=== PATIENT | male | born 1955 | race Caucasian/White ===

== ENCOUNTER 2017-07-30 14:44 | Emergency (ER) | payer OTHER ==
[~2017-07-30] VITALS: Ht 175.3 cm; Wt 100.0 kg
[2017-07-30 15:03] VITALS: TEMP 37; Ht 175.3 cm; Wt 100.0 kg
[2017-07-30] MEDS ORDERED: OPTIRAY 320 IV PRN (16:00)
[2017-07-30 16:07] LABS: BASO % 0.2 %; BASO ABS # 0.03 K/uL (0-0.2); EOS % 0.4 %; EOS ABS # 0.06 K/uL (0-0.5); HEMATOCRIT 42.8 % (42-52); HEMOGLOBIN 15.8 g/dL (14.0-18.0); IG# 0.06 K/uL (0.00-0.02); LYMPH % 6.4 %; LYMPH ABS # 0.91 K/uL (1.2-3.4); MEAN CELL VOLUME 82.1 fL (80-100); MEAN CORPUSCULAR HEMOGLOBIN 30.3 pg (25-34); MEAN CORPUSCULAR HGB CONC 36.9 g/dl (32-36); MEAN PLATELET VOLUME 9.6 fL (7.4-10.4); MONO % 5.7 %; NEUT % 86.9 %; NEUT ABS # 12.29 K/uL (1.4-6.5); PLATELET COUNT 229 K/uL (130-400); RED CELL DISTRIBUTION WIDTH CV 12.7 % (11.5-14.5); RED CELL DISTRIBUTION WIDTH SD 37.8 fL (36.4-46.3); WHITE BLOOD COUNT 14.15 K/uL (4.8-10.8)
[2017-07-30 16:12] LABS: PTT PATIENT 21.1 SECONDS (21.0-31.0)
[2017-07-30] MEDS ORDERED: DIPHTHERIA/TETANUS/PERTUSSIS 0.5 ML SYR/VIAL IM. ONE (16:15)
--- NOTE | 2017-07-30 16:20 | DIAGNOSTIC IMAGING REPORT ---
R SHOULDER MIN 2 VIEWS ROUTINE HISTORY: 62 years-old Male right shoulder pain, fall acute right shoulder pain status post fall COMPARISON: None available TECHNIQUE: 3 views of the right shoulder FINDINGS: Mild AC joint degenerative changes without significant degenerative changes of the glenohumeral joint. There is no acute fracture or dislocation. No opaque foreign body. Imaged lung lawrence appear clear. IMPRESSION: No acute fracture or dislocation. The above report was generated using voice recognition software. It may contain grammatical, syntax or spelling errors. Electronically signed by: Sim Horowitz M.D. 07/30/2017 4:19 PM Dictated Date/Time: 07/30/2017 4:18 PM
[2017-07-30 16:34] LABS: ALBUMIN 4.4 gm/dl (3.4-5.0); CALCIUM 9.3 mg/dl (8.5-10.1); CREATININE 1.42 mg/dl (0.60-1.40); POTASSIUM 3.8 mmol/L (3.5-5.1)
[2017-07-30 16:37] LABS: TOTAL PROTEIN 7.4 gm/dl (6.4-8.2)
--- NOTE | 2017-07-30 16:37 | EMERGENCY ROOM VISIT NOTE ---
History First contact with patient: 15:10 Chief Complaint: SHOULDER PAIN Stated Complaint: SORE RIGHT SIDE FELL, SHOULDER, ARM, HEAD History of Present Illness The patient is a 62 year old male who presents to the Emergency Room with complaints of headache, neck pain, right shoulder pain, and right anterior chest wall pain after a fall at approximately 130 this afternoon. The patient was at work today and attempting to unload a 55 [id number] off of the truck and onto the ground. 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 He states he fell approximately 6 feet, landing on the right shoulder, and striking the right side of his head on the ground. He is currently reporting a popping sensation in the right anterior aspect of his chest wall. The patient denies any LOC, confusion, dizziness, wheezing, chest pressure, or difficulty with ambulation. The patient does report pleuritic pain in the area of discomfort on the right anterior chest, overlying the third rib at the sternal border. He describes a throbbing pain in the right side of his forehead, pain in his TMJ with opening the jaw, and sharp pain in the right anterior shoulder with abduction and forward flexion. He rates his pain 8/10 with activity and describes it as dull at rest. He denies any numbness, tingling, paresthesias, weakness, abdominal pain, hip pain, visual disturbances. The patient does not take blood thinners or aspirin. His tetanus vaccination is not up-to-date. Review of Systems A complete 10 point review of systems was reviewed with the patient with pertinent positives and negatives as per history of present illness. All else were negative. Past Medical/Surgical History High Blood pressure Social History Smoking Status: Current Every Day Smoker Smokeless Tobacco Use: No Alcohol Use: none Drug Use: none Marital Status: single Housing Status: lives with family Occupation Status: employed Current/Historical Medications Scheduled PRN Cyclobenzaprine Hcl (Flexeril), 5-10 MG PO TID PRN for Muscle Spasms Physical Exam Vital Signs Date Time Temp Pulse Resp B/P (MAP) Pulse Ox O2 Delivery O2 Flow Rate FiO2 07/30/17 18:27 79 20 170/96 96 07/30/17 16:27 90 24 185/115 95 Room Air 07/30/17 15:28 92 5/2/18 15:19 65 07/30/17 15:03 37.0 91 20 161/108 96 Room Air Physical Exam VITALS: Vitals are noted on the nurse's note and reviewed by myself. Vital signs stable. GENERAL: This is a 62-year-old white male, in no acute distress, nondiaphoretic , well-developed well-nourished. SKIN: Superficial abrasions noted on the right superior shoulder, right parietal region and frontal region of the scalp. The skin was otherwise without rashes, erythema, edema, or bruising. There is no tenting of the skin. Capillary reflex less than 2 seconds. HEAD: Normocephalic atraumatic. EARS: External auditory canals clear, tympanic membranes pearly benites without erythema or effusion bilaterally. EYES: Pupils equal round and reactive to light and accommodation. Conjunctivae without injection, sclerae without icterus. Extraocular movements intact. NOSE: Patent, turbinates without inflammation or discharge. No sinus tenderness. MOUTH: Mucous membranes moist. Tonsils are not enlarged. Pharynx without erythema or exudate. Uvula midline. Airway patent. Tongue does not deviate. NECK: Supple without nuchal rigidity. No lymphadenopathy. No thyromegaly. Cervical spine is mildly tender with tenderness of the paraspinal muscles on the right. No JVD. HEART: Regular rate and rhythm without murmurs gallops or rubs. LUNGS: Mild crackles noted in the right upper lung field. A popping noise was auscultated in the area of the third rib with deep inspiration. The lungs are otherwise clear to auscultation bilaterally without wheezes, rales or rhonchi. No dullness to percussion. No retractions or accessory muscle use. ABDOMEN: Positive bowel sounds x 4. Normal tympanic percussion. Soft, nontender, without masses or organomegaly. Wilson sign negative. No guarding or rebound tenderness. MUSCULOSKELETAL: There is no obvious deformity in the contour of the right shoulder and there are no obvious rosy deformities noted. There is no sulcus sign. There is tenderness over the shoulder joint and distal clavicle. The patient's range of motion is significantly limited with abduction and flexion at the shoulder joint. Supraspinatus strength 3/5. There is distal clavicle tenderness. No tenderness of the humerus, elbow, wrist, or hand. Truck Despatcher strength 5 /5. Radial pulse 2+. No muscle atrophy, erythema, or edema noted. Full range of motion without joint tenderness in all extremities. No tenderness to palpation. Normal gait. Strength 5/5 throughout. NEURO: Patient was alert and oriented to person place and time. Normal sensation to light and sharp touch. Deep tendon reflexes 2+ throughout. No focal neurological deficits. Medical Decision & Procedures ER Provider Diagnostic Interpretation: R SHOULDER MIN 2 VIEWS ROUTINE HISTORY: 62 years-old Male right shoulder pain, fall acute right shoulder pain status post fall COMPARISON: None available TECHNIQUE: 3 views of the right shoulder FINDINGS: Mild AC joint degenerative changes without significant degenerative changes of the glenohumeral joint. There is no acute fracture or dislocation. No opaque foreign body. Imaged lung lawrence appear clear. IMPRESSION: No acute fracture or dislocation. The above report was generated using voice recognition software. It may contain grammatical, syntax or spelling errors. Electronically signed by: Sim Horowitz M.D. 07/30/2017 4:19 PM Dictated Date/Time: 07/30/2017 4:18 PM [~ rep ct add3]] CT SCAN OF THE BRAIN WITHOUT IV CONTRAST CLINICAL HISTORY: Trauma. Fall from height. COMPARISON STUDY: No priors. TECHNIQUE: Unenhanced axial CT scan of the brain is performed from the vertex to the skull base. A dose lowering technique was utilized adhering to the principles of ALARA. FINDINGS: Brain parenchyma: The brain parenchyma is normal in appearance. There is no hemorrhage, mass effect, or evidence of acute territorial ischemia by CT criteria. Benites-white matter is preserved. No extra-axial fluid collection is seen. Ventricles, sulci, cisterns: Normal in configuration. Intracranial vasculature: There is mild atherosclerotic calcification of the cavernous carotid arteries. Calvarium: There is no depressed calvarial fracture. Sinuses and mastoids: The visualized paranasal sinuses are clear. The mastoid air cells are well pneumatized. Orbits: The bony orbits are grossly intact. IMPRESSION: No acute intracranial abnormality. Electronically signed by: Thien Roy M.D. 07/30/2017 5:15 PM Dictated Date/Time: 07/30/2017 5:[address] SCAN OF THE CHEST WITH IV CONTRAST CLINICAL HISTORY: Trauma. Fall. COMPARISON STUDY: No priors. TECHNIQUE: Following the IV administration of 117 cc of Optiray 320, CT scan of the thorax was performed from the thoracic inlet to the upper abdomen. Images are reviewed in the axial, sagittal, and coronal planes. IV contrast was administered without complication. A dose lowering technique was utilized adhering to the principles of ALARA. The examination is degraded by streak artifact from the right arm which could not be elevated above the chest. FINDINGS: Thyroid: Imaged portions of the thyroid gland are normal in size and attenuation. Thoracic aorta: The thoracic aorta is normal in caliber and demonstrates standard 3-vessel arch anatomy. No dissection is seen. Pulmonary vasculature: The pulmonary trunk is normal in caliber. There are no filling defects identified in the central pulmonary vessels to indicate pulmonary embolus. Note that this examination was not protocoled for evaluation of the pulmonary arteries. Heart: The heart is top normal in size and without pericardial effusion. There are scattered coronary artery calcifications. Lungs and pleural spaces: There is elevation right hemidiaphragm with right basilar atelectasis. No airspace consolidation, pleural effusion, or pneumothorax is seen. The trachea and central airways are clear. There is a 4 mm pleural-based nodule in the left lower lobe seen on image #93. Mediastinum: There is no mediastinal hematoma or lymphadenopathy. Jenny: Clear. Axillae: There is no axillary lymphadenopathy. Upper abdomen: There is evidence of hepatic steatosis. A tiny hiatal hernia is identified. Scattered subcentimeter hepatic hypodensities likely represent cysts but are too small for definitive characterization. Skeletal structures: The bony thorax appears intact. No lytic or blastic bony lesions are seen. IMPRESSION: 1. There is no acute posttraumatic intrathoracic abnormality. 2. No airspace consolidation, pleural effusion, or pneumothorax is seen. 3. The bony thorax appears intact. 4. Hepatic steatosis. 5. There is a pathologically indeterminant low suspicion 4 mm pleural-based nodule in the left lower lobe. This can be followed if clinically warranted. See below. Please refer to below summary of Fleischner criteria recommendations for follow-up of incidental CT nodules (Aristides Bradford, Guidelines for management of small pulmonary nodules detected on CT scans: A statement from the Fleischner Society, Radiology 237: [phone].) SOLID NODULES Solitary nodule size: <6 mm * low risk patients: no follow-up needed * high risk patients: optional CT at 12 months Solitary nodule size: 6-8 mm * low risk patients: follow-up at 6-12 months, then consider further follow-up at 18-24 months * high risk patients: initial follow-up CT at 6-12 months and then at 18-24 months if no change Solitary nodule size: >8 mm * either low or high risk patients - consider follow-up CT at 3 months, and/or CT-PET, and/or biopsy Multiple nodules size: <6 mm * low risk patients: no routine follow-up * high risk patients: optional CT at 12 months Multiple nodules size: 6-8 mm * low risk patients: follow-up at 3-6 months, then consider further follow-up at 18-24 months * high risk patients: follow-up at 3-6 months, then at 18-24 months if no change Multiple nodules size: >8 mm * low risk patients: follow-up at 3-6 months, then consider further follow-up at 18-24 months * high risk patients: follow-up at 3-6 months, then at 18-24 months if no change Note: newly detected indeterminate nodule in persons 35 years of age or older. * low risk patients: minimal or absent history of smoking and/or other known risk factors * high risk patients: history of smoking or of other known risk factors (e.g. first degree relative with lung cancer, or exposure to asbestos, radon, uranium) * if a nodule up to 8 mm is partly solid or is ground glass further follow-up is required after 24 months to exclude possible slow growing adenocarcinoma (NICOLETTE) SUBSOLID NODULES Solitary pure ground-glass nodule * nodule size <6 mm - no CT follow-up required * nodule size >=6 mm - follow-up CT at 6-12 months, then every 2 years until 5 years Solitary part-solid nodule * nodule size <6 mm - no CT follow-up required * nodule size >=6 mm - follow-up CT at 3-6 months. If unchanged, and solid component remains <6 mm, then annual follow-up for 5 years Multiple subsolid nodules * nodule size <6 mm - follow-up CT at 3-6 months, consider further follow-up at 2 and 4 years if stable * nodule size >=6 mm - follow-up CT at 3-6 months, subsequent management based on the most suspicious nodule(s) Electronically signed by: Thien Roy M.D. 07/30/2017 5:23 PM Dictated Date/Time: 07/30/2017 5:16 PM CERVICAL SPINE W/O CT DOSE: 2244.03 mGy.cm CLINICAL HISTORY: 62 years-old Male with fall, neck pain. Acute neck pain status post fall COMPARISON: CT head of same day TECHNIQUE: Multiple axial CT images of the cervical spine were obtained without contrast. A dose lowering technique was utilized adhering to the principles of ALARA. FINDINGS: No acute cervical spine fracture or subluxation identified. Posterior elements appear intact. Mild to moderate intervertebral disc space narrowing at C5-C6 and C6-C7 with posterior disc osteophyte complex formation seen at the levels. There is mild multilevel facet arthrosis. At C5-C6 there is mild right and mild to moderate left foraminal narrowing. At C6-C7 there is mild to moderate bilateral foraminal stenosis. No definite high-grade central canal narrowing. Lung apices are clear. No dominant thyroid nodule or pathologic adenopathy identified. Mastoid air cells and middle ear cavities are clear. Paranasal sinuses also appear clear. IMPRESSION: No acute cervical spine fracture or subluxation. The above report was generated using voice recognition software. It may contain grammatical, syntax or spelling errors. Electronically signed by: Sim Horowitz M.D. 07/30/2017 5:17 PM Dictated Date/Time: 07/30/2017 5:13 PM Laboratory Results 07/30/17 15:35 Red Blood Count 5.21, Mean Corpuscular Volume 82.1, Mean Corpuscular Hemoglobin 30.3, Mean Corpuscular Hemoglobin Concent 36.9, Mean Platelet Volume 9.6, Neutrophils (%) (Auto) 86.9, Lymphocytes (%) (Auto) 6.4, Monocytes (%) (Auto) 5.7, Eosinophils (%) (Auto) 0.4, Basophils (%) (Auto) 0.2, Neutrophils # (Auto) 12.29, Lymphocytes # (Auto) 0.91, Monocytes # (Auto) 0.80, Eosinophils # (Auto) 0.06, Basophils # (Auto) 0.03 07/30/17 15:35 Test 07/30/17 15:35 White Blood Count 14.15 K/uL (4.8-10.8) Red Blood Count 5.21 M/uL (4.7-6.1) Hemoglobin 15.8 g/dL (14.0-18.0) Hematocrit 42.8 % (42-52) Mean Corpuscular Volume 82.1 fL (80-100) Mean Corpuscular Hemoglobin 30.3 pg (25-34) Mean Corpuscular Hemoglobin Concent 36.9 g/dl (32-36) Platelet Count 229 K/uL (130-400) Mean Platelet Volume 9.6 fL (7.4-10.4) Neutrophils (%) (Auto) 86.9 % Lymphocytes (%) (Auto) 6.4 % Monocytes (%) (Auto) 5.7 % Eosinophils (%) (Auto) 0.4 % Basophils (%) (Auto) 0.2 % Neutrophils # (Auto) 12.29 K/uL (1.4-6.5) Lymphocytes # (Auto) 0.91 K/uL (1.2-3.4) Monocytes # (Auto) 0.80 K/uL (0.11-0.59) Eosinophils # (Auto) 0.06 K/uL (0-0.5) Basophils # (Auto) 0.03 K/uL (0-0.2) RDW Standard Deviation 37.8 fL (36.4-46.3) RDW Coefficient of Variation 12.7 % (11.5-14.5) Immature Granulocyte % (Auto) 0.4 % Immature Granulocyte # (Auto) 0.06 K/uL (0.00-0.02) Prothrombin Time 10.2 SECONDS (9.0-12.0) Prothromb Time International Ratio 1.0 (0.9-1.1) Activated Partial Thromboplast Time 21.1 SECONDS (21.0-31.0) Partial Thromboplastin Ratio 0.8 Anion Gap 7.0 mmol/L (3-11) Est Creatinine Clear Calc Drug Dose 64.5 ml/min Estimated GFR () 61.8 Estimated GFR (Non- 53.3 BUN/Creatinine Ratio 15.7 (10-20) Calcium Level 9.3 mg/dl (8.5-10.1) Total Bilirubin 0.8 mg/dl (0.2-1) Aspartate Amino Transf (AST/SGOT) 24 U/L (15-37) Alanine Aminotransferase (ALT/SGPT) 44 U/L (12-78) Alkaline Phosphatase 62 U/L (45-117) Total Protein 7.4 gm/dl (6.4-8.2) Albumin 4.4 gm/dl (3.4-5.0) Globulin 3.0 gm/dl (2.5-4.0) Albumin/Globulin Ratio 1.5 (0.9-2) Medications Administered Medications (Trade) Dose Ordered Sig/Kinga Route Start Time Stop Time Status Last Admin Dose Admin Diphtheria/ Pertussis/Tetanus Vacc (Adacel Inj) 0.5 ml ONCE ONCE IM. 07/30/17 16:15 07/30/17 16:16 DC 07/30/17 16:26 0.5 ML Ketorolac Tromethamine (Toradol Inj) 30 mg NOW STAT IV 07/30/17 17:30 07/30/17 17:31 DC 07/30/17 18:05 30 MG Cyclobenzaprine HCl (FLEXERIL 10MG Home Pack) 1 homepack UD STAT PO 07/30/17 18:20 07/30/17 18:21 DC 07/30/17 18:20 1 HOMEPACK ECG Per My Interpretation Indication: chest pain Rate (beats per minute): 88 Rhythm: normal sinus Findings: no acute ischemic change, no ectopy Comparison ECG Date: no prior available ED Course Patient was seen and evaluated as above. I offered analgesics, but the patient declines. EKG interpreted by myself. IV access obtained, labs drawn. Imaging performed and reviewed by myself and radiologist as above. Upon return from radiology, the patient did request pain medication for his headache. He was given 30 mg Toradol IV. I discussed the findings of imaging with the patient at bedside. I did discuss with him the pulmonary nodule which was found incidentally. He was encouraged to follow-up with his PCP regarding this finding. Discharge instructions reviewed, the patient was discharged home in good condition. Medical Decision This is a 62-year-old male patient presents the emergency department today complaining of right sided shoulder, head, and chest discomfort after an approximately 6 foot fall while at work. The patient is not on blood thinners, but does have multiple abrasions and contusions noted on the right side. CT scans were performed in addition to right shoulder x-ray due to the patient's complaints and decreased mobility of the right upper extremity at the shoulder joint. CT scans did not reveal any significant abnormal findings, but did incidentally note a pulmonary nodule. I did discuss this finding with the patient, and recommended close follow-up by the PCP. Labs revealed a mild leukocytosis of 14,000. I suspect this is associated with the stress of the fall and being in the emergency department. No anemia or thrombocytopenia. Creatinine was slightly elevated at 1.42. I suspect this is related to some mild dehydration, as the patient has been working throughout the day. He does not have a known history of renal disease. Routine follow-up labs. Patient hepatic function and electrolytes without significant abnormalities. Blood glucose was 154. Coagulation studies were negative. I suspect multiple contusions as the cause of the patient's symptoms, as there were no acute fractures or traumatic findings on imaging. The patient was encouraged to use muscle relaxers and anti-inflammatory medications for his discomfort. He was agreeable. He was certainly invited back to the emergency department for any concerning symptoms. I did encourage the patient to closely follow-up with his PCP/Worker's Compensation providers. The patient verbalizes understanding. All questions were answered to the patient and his 's satisfaction. Etiologies such as fracture, dislocation, soft tissue injury, intra-abdominal, intrathoracic, intracranial as well as other traumatic pathologies were entertained. The chart was completed utilizing [employer] Speech voice recognition software. Grammatical errors, random word insertions, pronoun errors, and incomplete sentences are an occasional consequence of this system due to software limitations, ambient noise, and hardware issues. Any formal questions or concerns about the content, text, or information contained within the body of this dictation should be directly addressed to the provider for clarification. Medication Reconcilliation Current Medication List: was personally reviewed by me Blood Pressure Screening Patient's blood pressure: Elevated blood pressure Blood pressure disposition: Elevated BP felt to be situational Impression Primary Impression: Fall from height of greater than 3 feet Additional Impressions: Contusion of right shoulder Closed head injury Chest wall contusion Departure Information Dispostion Home / Self-Care Condition GOOD Prescriptions Cyclobenzaprine Hcl (FLEXERIL) 5 Mg Tab 5-10 MG PO TID Y for Muscle Spasms, #15 TAB PRN Prov: Annmarie Kauffman, SHELLEY 07/30/17 Referrals No Doctor, Assigned (PCP) Patient Instructions ED Contusion Chest Wall, ED Contusion Shoulder, ED Head Injury Closed, ED Mechanical Fall, My [facility] Additional Instructions You have been treated in the Emergency Department for a traumatic fall with right shoulder, chest wall, and rib pain. You were also seen for a closed head injury. CT scans did not reveal any acute bleeding, fractures, or other abnormalities. Wear the shoulder sling for comfort. You have been prescribed Flexeril (cyclobenzaprine) 1-2 tabs orally, three times per day. Do NOT exceed 30 mg (6 tabs) per day. Take your first dose at bedtime as it can make you drowsy. Always take all medications as prescribed. For pain control, you can use the following [id number] medicines (if >12 yo): Ibuprofen(Motrin, Advil) may be used for fever or pain. Use 600mg every six hours as needed. Take with food. Avoid using more than 2400mg in a 24 hour period. Do not use 2400mg per day for more than three consecutive days without physician direction. Prolonged inappropriate use can lead to stomach upset or ulcers. (AND/OR) Acetaminophen(Tylenol) may be used for fever or pain. Use 1000mg every six hours as needed. Avoid using more than 3000mg in a 24 hour period. If this is an acute injury, ice can be applied to the area of pain for the first 3 days to help decrease pain and inflammation. After the first 3 days, a heating pad can be used over the area for continued soothing relief. You should relax in a quiet, dark place for the rest of the day. Avoid any possible triggers including: cigarette smoke, caffeine, nicotine, chocolate, wine, beer, loud noises or music, or bright lights. You should schedule a follow-up appointment in 2-3 days with your Primary Care Provider/Worker's Compensation provider for further evaluation and treatment of your injuries. Hugging a pillow while coughing or sneezing can help to reduce your pain. Be sure to continue taking occasional deep breaths to help expand your lungs to reduce the risk of developing pneumonia. As discussed, incidentally, nodule noted in the left lung. This should be followed up by your PCP. No lifting or driving at work until Friday at the earliest. You may ride along with another coworker with no other physical activity. Return to the Emergency Department if your current symptoms worsen despite treatment course outlined above, or if you develop any of the following symptoms : intractable pain despite aforementioned treatment course, loss of control of your bowel or bladder, numbness or tingling in your groin, or development of a fever. Problem Qualifiers Additional Impressions: Contusion of right shoulder Encounter type: initial encounter Qualified Codes: S40.011A - Contusion of right shoulder, initial encounter Closed head injury Encounter type: initial encounter Qualified Codes: S09.90XA - Unspecified injury of head, initial encounter Chest wall contusion Encounter type: initial encounter Laterality: right Qualified Codes: S20.211A - Contusion of right front wall of thorax, initial encounter
--- NOTE | 2017-07-30 17:17 | DIAGNOSTIC IMAGING REPORT ---
CT SCAN OF THE BRAIN WITHOUT IV CONTRAST CLINICAL HISTORY: Trauma. Fall from height. COMPARISON STUDY: No priors. TECHNIQUE: Unenhanced axial CT scan of the brain is performed from the vertex to the skull base. A dose lowering technique was utilized adhering to the principles of ALARA. FINDINGS: Brain parenchyma: The brain parenchyma is normal in appearance. There is no hemorrhage, mass effect, or evidence of acute territorial ischemia by CT criteria. Benites-white matter is preserved. No extra-axial fluid collection is seen. Ventricles, sulci, cisterns: Normal in configuration. Intracranial vasculature: There is mild atherosclerotic calcification of the cavernous carotid arteries. Calvarium: There is no depressed calvarial fracture. Sinuses and mastoids: The visualized paranasal sinuses are clear. The mastoid air cells are well pneumatized. Orbits: The bony orbits are grossly intact. IMPRESSION: No acute intracranial abnormality. Electronically signed by: Thien Roy M.D. 07/30/2017 5:15 PM Dictated Date/Time: 07/30/2017 5:11 PM
--- NOTE | 2017-07-30 17:18 | DIAGNOSTIC IMAGING REPORT ---
CERVICAL SPINE W/O CT DOSE: 2244.03 mGy.cm CLINICAL HISTORY: 62 years-old Male with fall, neck pain. Acute neck pain status post fall COMPARISON: CT head of same day TECHNIQUE: Multiple axial CT images of the cervical spine were obtained without contrast. A dose lowering technique was utilized adhering to the principles of ALARA. FINDINGS: No acute cervical spine fracture or subluxation identified. Posterior elements appear intact. Mild to moderate intervertebral disc space narrowing at C5-C6 and C6-C7 with posterior disc osteophyte complex formation seen at the levels. There is mild multilevel facet arthrosis. At C5-C6 there is mild right and mild to moderate left foraminal narrowing. At C6-C7 there is mild to moderate bilateral foraminal stenosis. No definite high-grade central canal narrowing. Lung apices are clear. No dominant thyroid nodule or pathologic adenopathy identified. Mastoid air cells and middle ear cavities are clear. Paranasal sinuses also appear clear. IMPRESSION: No acute cervical spine fracture or subluxation. The above report was generated using voice recognition software. It may contain grammatical, syntax or spelling errors. Electronically signed by: Sim Horowitz M.D. 07/30/2017 5:17 PM Dictated Date/Time: 07/30/2017 5:13 PM
--- NOTE | 2017-07-30 17:24 | DIAGNOSTIC IMAGING REPORT ---
CT SCAN OF THE CHEST WITH IV CONTRAST CLINICAL HISTORY: Trauma. Fall. COMPARISON STUDY: No priors. TECHNIQUE: Following the IV administration of 117 cc of Optiray 320, CT scan of the thorax was performed from the thoracic inlet to the upper abdomen. Images are reviewed in the axial, sagittal, and coronal planes. IV contrast was administered without complication. A dose lowering technique was utilized adhering to the principles of ALARA. The examination is degraded by streak artifact from the right arm which could not be elevated above the chest. FINDINGS: Thyroid: Imaged portions of the thyroid gland are normal in size and attenuation. Thoracic aorta: The thoracic aorta is normal in caliber and demonstrates standard 3-vessel arch anatomy. No dissection is seen. Pulmonary vasculature: The pulmonary trunk is normal in caliber. There are no filling defects identified in the central pulmonary vessels to indicate pulmonary embolus. Note that this examination was not protocoled for evaluation of the pulmonary arteries. Heart: The heart is top normal in size and without pericardial effusion. There are scattered coronary artery calcifications. Lungs and pleural spaces: There is elevation right hemidiaphragm with right basilar atelectasis. No airspace consolidation, pleural effusion, or pneumothorax is seen. The trachea and central airways are clear. There is a 4 mm pleural-based nodule in the left lower lobe seen on image #93. Mediastinum: There is no mediastinal hematoma or lymphadenopathy. Jenny: Clear. Axillae: There is no axillary lymphadenopathy. Upper abdomen: There is evidence of hepatic steatosis. A tiny hiatal hernia is identified. Scattered subcentimeter hepatic hypodensities likely represent cysts but are too small for definitive characterization. Skeletal structures: The bony thorax appears intact. No lytic or blastic bony lesions are seen. IMPRESSION: 1. There is no acute posttraumatic intrathoracic abnormality. 2. No airspace consolidation, pleural effusion, or pneumothorax is seen. 3. The bony thorax appears intact. 4. Hepatic steatosis. 5. There is a pathologically indeterminant low suspicion 4 mm pleural-based nodule in the left lower lobe. This can be followed if clinically warranted. See below. Please refer to below summary of Fleischner criteria recommendations for follow-up of incidental CT nodules ([facility] Bradford, Guidelines for management of small pulmonary nodules detected on CT scans: A statement from the Fleischner Society, Radiology 237: [phone].) SOLID NODULES Solitary nodule size: <6 mm * low risk patients: no follow-up needed * high risk patients: optional CT at 12 months Solitary nodule size: 6-8 mm * low risk patients: follow-up at 6-12 months, then consider further follow-up at 18-24 months * high risk patients: initial follow-up CT at 6-12 months and then at 18-24 months if no change Solitary nodule size: >8 mm * either low or high risk patients - consider follow-up CT at 3 months, and/or CT-PET, and/or biopsy Multiple nodules size: <6 mm * low risk patients: no routine follow-up * high risk patients: optional CT at 12 months Multiple nodules size: 6-8 mm * low risk patients: follow-up at 3-6 months, then consider further follow-up at 18-24 months * high risk patients: follow-up at 3-6 months, then at 18-24 months if no change Multiple nodules size: >8 mm * low risk patients: follow-up at 3-6 months, then consider further follow-up at 18-24 months * high risk patients: follow-up at 3-6 months, then at 18-24 months if no change Note: newly detected indeterminate nodule in persons 35 years of age or older. * low risk patients: minimal or absent history of smoking and/or other known risk factors * high risk patients: history of smoking or of other known risk factors (e.g. first degree relative with lung cancer, or exposure to asbestos, radon, uranium) * if a nodule up to 8 mm is partly solid or is ground glass further follow-up is required after 24 months to exclude possible slow growing adenocarcinoma ([facility]LETTE) SUBSOLID NODULES Solitary pure ground-glass nodule * nodule size <6 mm - no CT follow-up required * nodule size >=6 mm - follow-up CT at 6-12 months, then every 2 years until 5 years Solitary part-solid nodule * nodule size <6 mm - no CT follow-up required * nodule size >=6 mm - follow-up CT at 3-6 months. If unchanged, and solid component remains <6 mm, then annual follow-up for 5 years Multiple subsolid nodules * nodule size <6 mm - follow-up CT at 3-6 months, consider further follow-up at 2 and 4 years if stable * nodule size >=6 mm - follow-up CT at 3-6 months, subsequent management based on the most suspicious nodule(s) Electronically signed by: Thien Roy M.D. 07/30/2017 5:23 PM Dictated Date/Time: 07/30/2017 5:16 PM
[2017-07-30] MEDS ORDERED: KETOROLAC TROMETHAMINE 30 MG/ML VIAL IV STA (17:30)
[2017-07-30] MEDS ORDERED: CYCL5TAB PO (17:50)
[2017-07-30] MEDS ORDERED: FLEXERIL HOME PACK 10 MG VIAL PO STA (18:20)
[2017-07-30 18:27] VITALS: BP 170/96; PULSE 79; O2SAT 96
== END 2017-07-30 18:28 | disposition home or self-care (01) ==
LOC: C.EDB 14:46 → C.EDA 18:28
DX: S40.011A Contusion of right shoulder, initial encounter (principal); S09.90XA Unspecified injury of head, initial encounter; S20.211A Contusion of right front wall of thorax, initial encounter; W17.89XA Other fall from one level to another, initial encounter; Y99.0 Civilian activity done for income or pay; I10 Essential (primary) hypertension; F17.210 Nicotine dependence, cigarettes, uncomplicated; Z23 Encounter for immunization